=== PATIENT | female | born 1970 | race African-American/Black ===

== ENCOUNTER 2024-05-17 06:08 | Day surgery (SDC) | payer OTHER ==
[2024-05-12 13:47] VITALS: BMI 35.5
[2024-05-17] MEDS ORDERED: DEXAMETHASONE SOD PHOSPHATE 10 MG/1 ML VIAL ONE (07:23)
[2024-05-17] MEDS ORDERED: MIDAZOLAM HCL 2 MG/2 ML SINGLE DOSE VIAL ONE ×3 (07:23→09:52)
[2024-05-17] MEDS ORDERED: BUPIVACAINE HCL/PF 0.5% (5 MG/ML) 30 ML VIAL IJ ONE (07:23)
[2024-05-17] MEDS ORDERED: EPINEPHrine 1:1,000 1,000 MCG/ML ML ONE (07:28)
[2024-05-17] MEDS ORDERED: BUPIVACAINE HCL/EPINEPHRINE/PF 30 ML VIAL IJ ONE (07:28)
[2024-05-17] MEDS ORDERED: BUPIVACAINE HCL/PF 2.5 MG/ML - 30 ML VIAL IJ ONE (07:28)
[2024-05-17] MEDS ORDERED: LIDOCAINE HCL/PF 2% SDV 5ML VIAL ONE (07:44)
[2024-05-17] MEDS ORDERED: DEXAMETHASONE SOD PHOSPHATE 4 MG/1 ML VIAL ONE (08:06)
[2024-05-17] MEDS ORDERED: ONDANSETRON 4 MG/2 ML VIAL ONE ×2 (08:06→09:34)
[2024-05-17] MEDS ORDERED: PROPOFOL 20 ML ONE (08:06)
[2024-05-17] MEDS ORDERED: ceFAZolin SODIUM 1 GM VIAL ONE (08:09)
[2024-05-17] MEDS ORDERED: KETOROLAC TROMETHAMINE 30 MG/1 ML VIAL ONE (08:27)
[2024-05-17] MEDS ORDERED: oxyCODONE HCL 5 MG TABLET PO PRN (10:02)
[2024-05-17] MEDS ORDERED: ONDANSETRON 4 MG/2 ML VIAL IVPUSH PRN (10:02)
[2024-05-17] MEDS ORDERED: LACTATED RINGERS SOLUTION 1,000 ML IV SCH (10:15)
[2024-05-17 11:11] VITALS: RESP 19; TEMP 97
[2024-05-17 11:30] VITALS: BP 140/73; PULSE 73
== END 2024-05-17 12:19 | disposition home or self-care (01) ==
LOC: FASU 06:08
PROVIDERS: ATTEND Orthopaedic Surgery
PROC: 0LS34ZZ Reposition Right Upper Arm Tendon, Percutaneous Endoscopic Approach (ICD-10-PCS; principal; 2024-05-17 08:21)
PROC: 0RNJ4ZZ Release Right Shoulder Joint, Percutaneous Endoscopic Approach (ICD-10-PCS; 2024-05-17 08:21)
DX: S46.011D Strain of muscle(s) and tendon(s) of the rotator cuff of right shoulder, subsequent encounter (principal); M75.21 Bicipital tendinitis, right shoulder; M75.51 Bursitis of right shoulder; M65.811 Other synovitis and tenosynovitis, right shoulder; S43.431D Superior glenoid labrum lesion of right shoulder, subsequent encounter; M75.01 Adhesive capsulitis of right shoulder; X58.XXXD Exposure to other specified factors, subsequent encounter
CPT/HCPCS: 81025; 88304-TC; 94760; C1713; J1100